=== PATIENT | female | born 1980 | race Caucasian/White ===

== ENCOUNTER 2017-01-21 00:59 | Emergency (ER) | payer SELFPAY ==
[~2017-01-21] VITALS: Ht 165.1 cm; Wt 152.0 kg
--- NOTE | 2017-01-21 01:16 | ED Chest Pain ---
General Chief Complaint: Chest Pain Stated Complaint: CP Nursing Triage Note: c/o intermittent chest pain worse with deep breathing x 1 week Nursing Sepsis Screen: No Definite Risk Source: patient, RN notes reviewed Exam Limitations: no limitations History of Present Illness Time seen by provider: 01:11 Initial Comments Patient presents c/ c/o a week of substernal chest pain that is getting progressively worse. Increases significantly c/ inspiration. No known fever. No cough. No injury. No previous similar episodes. Denies any N/V, or diaphoresis as well as any SOA. Timing/Duration: 1 week, getting worse, intermittent Severity/Quality: moderate (5/10), sharp Location: substernal Radiation: no radiation Activities at Onset: other (unknown) Prior CP/Workup: no prior chest pain, no prior cardiac workup Modifying Factors: worse with breathing ASA po ASSISTANT PROFESSOR OF FORESTRY: No NTG SL ASSISTANT PROFESSOR OF FORESTRY: No Associated Symptoms: No diaphoresis, No fever/chills, No nausea/vomiting, No shortness of breath Allergies and Home Medications Allergies Coded Allergies: No Known Drug Allergies (Unverified , 01/21/17) Home Medications Diclofenac Sodium 50 Mg Tablet.dr, 50 MG PO Q6H PRN for chest pain, #30 Ref 0 Prescribed by: WYATT HARTMAN on 01/21/17 0233 Review of Systems Constitutional: see HPI Cardiovascular: See HPI, Chest Pain All Other Systems Reviewed Negative Unless Noted: Yes (Negative excepted noted.) Past Mytfaez-Yjjcql-Zwxogj Hx Patient Social History Alcohol Use: Denies Use Recreational Drug Use: No Smoking Status: Current Everyday Smoker Type Used: Cigarettes Recent Foreign Travel: No Contact w/Someone Who Travel: No Recent Infectious Disease Expo: No Surgeries Surgeries: Abdominal, Section Physical Exam Vital Signs Vital Sign - Last 12Hours 01/21/17 01/21/17 01:08 02:54 Temp 98.2 Pulse 95 Resp 18 B/P (MAP) 144/89 Pulse Ox 98 O2 Delivery Room Air Capillary Refill : Less Than 3 Seconds General Appearance: No Apparent Distress, WD/WN, Obese HEENT: Normal ENT Inspection Neck: Normal Inspection Respiratory: No Respiratory Distress, Other ((+) ACW tenderness/pain c/ palpation that does reproduce her pain) Cardiovascular: Regular Rate, Rhythm Gastrointestinal: Soft, Other (obese) Rectal: Deferred Neurologic/Psychiatric: Alert, Oriented x3, No Motor/Sensory Deficits Skin: Warm/Dry, No Rash Progress/Results/Core Measures Results/Orders Lab Results Laboratory Tests Test 01/21/17 01:40 01/21/17 02:00 Range/Units White Blood Count 9.2 4.3-11.0 10^3/uL Red Blood Count 4.52 4.35-5.85 10^6/uL Hemoglobin 11.6 11.5-16.0 G/DL Hematocrit 37 35-52 % Mean Corpuscular Volume 81 80-99 FL Mean Corpuscular Hemoglobin 26 25-34 PG Mean Corpuscular Hemoglobin Concent 32 32-36 G/DL Red Cell Distribution Width 15.1 H 10.0-14.5 % Platelet Count 296 130-400 10^3/uL Mean Platelet Volume 9.9 7.4-10.4 FL Neutrophils (%) (Auto) 71 42-75 % Lymphocytes (%) (Auto) 23 12-44 % Monocytes (%) (Auto) 5 0-12 % Eosinophils (%) (Auto) 1 0-10 % Basophils (%) (Auto) 0 0-10 % Neutrophils # (Auto) 6.5 1.8-7.8 X 10^3 Lymphocytes # (Auto) 2.1 1.0-4.0 X 10^3 Monocytes # (Auto) 0.5 0.0-1.0 X 10^3 Eosinophils # (Auto) 0.1 0.0-0.3 10^3/uL Basophils # (Auto) 0.0 0.0-0.1 10^3/uL D-Dimer 0.35 0.00-0.49 UG/ML Sodium Level 140 135-145 MMOL/L Potassium Level 3.9 3.6-5.0 MMOL/L Chloride Level 107 98-107 MMOL/L Carbon Dioxide Level 22 21-32 MMOL/L Anion Gap 11 5-14 MMOL/L Blood Urea Nitrogen 11 7-18 MG/DL Creatinine 0.77 0.60-1.30 MG/DL Estimat Glomerular Filtration Rate > 60 BUN/Creatinine Ratio 14 0-20 Glucose Level 103 70-105 MG/DL Calcium Level 9.8 8.5-10.1 MG/DL Magnesium Level 2.4 1.8-2.4 MG/DL Total Bilirubin 0.2 0.1-1.0 MG/DL Aspartate Amino Transf (AST/SGOT) 13 5-34 U/L Alanine Aminotransferase (ALT/SGPT) 10 0-55 U/L Alkaline Phosphatase 55 40-136 U/L Troponin I < 0.30 <0.30 NG/ML B-Type Natriuretic Peptide < 10.0 <100.0 PG/ML Total Protein 7.4 6.4-8.2 GM/DL Albumin 3.7 3.2-4.5 GM/DL Lipase 46 8-78 U/L Urine Color YELLOW Urine Clarity CLEAR Urine pH 6 5-9 Urine Specific [place] 1.015 L 1.016-1.022 Urine Protein NEGATIVE NEGATIVE Urine Glucose (UA) NEGATIVE NEGATIVE Urine Ketones NEGATIVE NEGATIVE Urine Nitrite NEGATIVE NEGATIVE Urine Bilirubin NEGATIVE NEGATIVE Urine Urobilinogen NORMAL NORMAL MG/DL Urine Leukocyte Esterase 2+ H NEGATIVE Urine RBC (Auto) NEGATIVE NEGATIVE Urine RBC NONE /HPF Urine WBC 2-5 /HPF Urine Squamous Epithelial Cells 10-25 H /HPF Urine Crystals NONE /LPF Urine Bacteria FEW H /HPF Urine Casts NONE /LPF Urine Mucus NEGATIVE /LPF Urine Culture Indicated NO My Orders Orders - WYATT HARTMAN DO Saline Lock/Iv-Start (01/21/17 01:14) Ekg Tracing (01/21/17 01:14) BNP (01/21/17 01:14) Cbc With Automated Diff (01/21/17 01:14) Comprehensive Metabolic Panel (01/21/17 01:14) Lipase (01/21/17 01:14) Magnesium (01/21/17 01:14) Troponin I (01/21/17 01:14) Ua Culture If Indicated (01/21/17 01:14) Chest 1 View, Ap/Pa Only (01/21/17 01:14) Fibrin Degradation Products (01/21/17 01:17) Ketorolac Injection (Toradol Injection) (01/21/17 01:30) Dexamethasone Pf Injection (Decadron Pf (01/21/17 02:30) Tramadol Tablet (Ultram Tablet) (01/21/17 02:30) Medications Given in ED Current Medications Medications Dose Ordered Sig/Mayito Route Start Time Stop Time Status Last Admin Dose Admin Dexamethasone Sodium Phosphate 10 mg ONCE ONCE IM 01/21/17 02:30 01/21/17 02:32 DC 01/21/17 02:52 10 MG Ketorolac Tromethamine 30 mg ONCE ONCE IVP 01/21/17 01:30 01/21/17 01:31 DC 01/21/17 01:33 30 MG Tramadol HCl 100 mg ONCE ONCE PO 01/21/17 02:30 01/21/17 02:32 DC 01/21/17 02:52 100 MG Vital Signs/I&O Vital Sign - Last 12Hours 01/21/17 01/21/17 01/21/17 01:08 01:08 02:54 Temp 98.2 Pulse 95 96 Resp 18 12 B/P (MAP) 144/89 Pulse Ox 98 O2 Delivery Room Air Room Air Blood Pressure Mean: 107 Progress Note : Progress Note Pain is better p/ the toradol, although the patient said it made her a little loopy. ECG Initial ECG Impression Date: Jan 21, 2017 Initial ECG Impression Time: 01:12 Initial ECG Rate: 96 Initial ECG Rhythm: Normal Sinus Initial ECG Comparisson: No Previous ECG Available Comment borderline prolonged QT interval Diagnostic Imaging Diagonstic Imaging: Xray Plain Films/CT/US/NM/MRI: chest Reviewed: Reviewed by Me (nothing acute) Departure Impression Impression: Primary Impression: Costochondritis, acute Additional Impression: Tobacco abuse Disposition: HOME, SELF-CARE Condition: Stable Departure-Patient Inst. Decision time for Depature: 02:32 Referrals: DIANNA ALEJO MD Patient Instructions: Costochondritis (DC) Scripts Diclofenac Sodium (Diclofenac Sodium) 50 Mg Tablet. 50 MG PO Q6H Y for chest pain, #30 TAB 0 Refills Prov: WYATT HARTMAN DO 01/21/17 WYATT HARTMAN DO Jan 21, 2017 01:16
[2017-01-21] MEDS ORDERED: KETOROLAC 30 MG/ML VIAL IVP ONE (01:30)
[2017-01-21 01:51] LABS: BASOPHILS % (AUTO) 0 % (0-10); EOSINOPHILS # (AUTO) 0.1 10^3/uL (0.0-0.3); EOSINOPHILS % (AUTO) 1 % (0-10); LYMPHOCYTES # (AUTO) 2.1 X 10^3 (1.0-4.0); LYMPHOCYTES % (AUTO) 23 % (12-44); MEAN CORPUSCULAR HEMOGLOBIN 26 PG (25-34); MEAN CORPUSCULAR HGB CONC 32 G/DL (32-36); MEAN CORPUSCULAR VOLUME 81 FL (80-99); MEAN PLATELET VOLUME 9.9 FL (7.4-10.4); MONOCYTES # (AUTO) 0.5 X 10^3 (0.0-1.0); MONOCYTES % (AUTO) 5 % (0-12); NEUTROPHILS # (AUTO) 6.5 X 10^3 (1.8-7.8); NEUTROPHILS % (AUTO) 71 % (42-75); PLATELET COUNT 296 10^3/uL (130-400); RED BLOOD COUNT 4.52 10^6/uL (4.35-5.85); RED CELL DISTRIBUTION WIDTH 15.1 % (10.0-14.5); WHITE BLOOD COUNT 9.2 10^3/uL (4.3-11.0)
[2017-01-21 02:08] LABS: BILIRUBIN,URINE NEGATIVE (NEGATIVE); KETONES,URINE NEGATIVE (NEGATIVE); LEUKOCYTE ESTERASE ,URINE 2+ (NEGATIVE); NITRITE,URINE NEGATIVE (NEGATIVE); PH,URINE 6 (5-9); PROTEIN,URINE NEGATIVE (NEGATIVE); UROBILINOGEN,URINE NORMAL (NORMAL)
[2017-01-21 02:14] LABS: ALANINE AMINOTRANSFERASE 10 U/L (0-55); ALBUMIN 3.7 GM/DL (3.2-4.5); ANION GAP 11 MMOL/L (5-14); ASPARTATE AMINO TRANSFERASE 13 U/L (5-34); BILIRUBIN,TOTAL 0.2 MG/DL (0.1-1.0); BLOOD UREA NITROGEN 11 MG/DL (7-18); BUN/CREATININE RATIO 14 (0-20); CALCIUM 9.8 MG/DL (8.5-10.1); CARBON DIOXIDE 22 MMOL/L (21-32); CHLORIDE 107 MMOL/L (98-107); CREATININE SERUM 0.77 MG/DL (0.60-1.30); GFR ESTIMATED > 60; GLUCOSE 103 MG/DL (70-105); HEMOLYSIS 5 (0-29); ICTERUS 0.1 (0-1.9); LIPASE 46 U/L (8-78); LIPEMIA 16 (0-49); MAGNESIUM 2.4 MG/DL (1.8-2.4); POTASSIUM 3.9 MMOL/L (3.6-5.0); SODIUM 140 MMOL/L (135-145); TOTAL PROTEIN 7.4 GM/DL (6.4-8.2)
[2017-01-21 02:20] LABS: TROPONIN I < 0.30 NG/ML (<0.30)
[2017-01-21] MEDS ORDERED: DEXAMETHASONE PF 10 MG/ML (DECADRON) VIAL IM ONE (02:30)
[2017-01-21] MEDS ORDERED: DICL50TA6 PO (02:33)
[2017-01-21 02:54] VITALS: BP 120/77
--- NOTE | 2017-01-21 07:20 | Diagnostic Imaging Report ---
INDICATION: Chest pain. TECHNIQUE: Single view chest 1:30 AM. CORRELATION STUDY: None FINDINGS: The heart size, mediastinal configuration and pulmonary vascularity are within normal limits. The lungs are clear with no consolidating infiltrate. May be trace atelectasis left lung base. There is no significant effusion or pneumothorax. IMPRESSION: 1. No radiographic evidence for acute abnormality of the chest. Dictated by: Dictated on workstation # [id number]
== END 2017-01-21 02:53 | disposition home or self-care (01) ==
LOC: ER 01:06
DX: M94.0 Chondrocostal junction syndrome [Tietze] (principal); F17.210 Nicotine dependence, cigarettes, uncomplicated
CPT/HCPCS: 36415; 71010; 80053; 81000; 83690; 83735; 83880; 84484; 85025; 85379; 93005; 99285

== ENCOUNTER 2017-08-18 17:08 | Emergency (ER) | payer OTHER ==
[~2017-08-18] VITALS: Ht 165.1 cm; Wt 142.4 kg
[~2017-08-18 17:08] MED LIST: DICL50TA6 PO
[2017-08-18] MEDS ORDERED: ASPIRIN 81 MG CHEW (CHILDREN'S ASA) PO ONE (17:15)
[2017-08-18] MEDS ORDERED: TRAZDONE (17:41)
[2017-08-18] MEDS ORDERED: METOPROLOL (17:44)
--- NOTE | 2017-08-18 17:44 | Diagnostic Imaging Report ---
INDICATION: Chest pain starting today. TECHNIQUE: Single view chest 5:26 PM. CORRELATION STUDY: 01/21/2017 FINDINGS: Heart size enlarged. Vasculature overall within normal limits. Atelectasis or infiltrate is present about the left lung base. IMPRESSION: 1. Cardiac enlargement without evidence of overt failure. Minimal atelectasis or less likely infiltrate left lung base. Dictated by: Dictated on workstation # [id number]
[2017-08-18 17:45] LABS: BASOPHILS % (AUTO) 0 % (0-10); EOSINOPHILS # (AUTO) 0.1 10^3/uL (0.0-0.3); EOSINOPHILS % (AUTO) 1 % (0-10); HEMATOCRIT 37 % (35-52); HEMOGLOBIN 12.1 G/DL (11.5-16.0); LYMPHOCYTES % (AUTO) 21 % (12-44); MEAN CORPUSCULAR HEMOGLOBIN 26 PG (25-34); MEAN CORPUSCULAR HGB CONC 33 G/DL (32-36); MEAN CORPUSCULAR VOLUME 79 FL (80-99); MEAN PLATELET VOLUME 10.2 FL (7.4-10.4); MONOCYTES # (AUTO) 0.7 X 10^3 (0.0-1.0); MONOCYTES % (AUTO) 7 % (0-12); NEUTROPHILS # (AUTO) 6.7 X 10^3 (1.8-7.8); NEUTROPHILS % (AUTO) 71 % (42-75); PLATELET COUNT 279 10^3/uL (130-400); RED CELL DISTRIBUTION WIDTH 14.9 % (10.0-14.5); WHITE BLOOD COUNT 9.5 10^3/uL (4.3-11.0)
[2017-08-18 17:58] LABS: INR 1.1 (0.8-1.4); PROTHROMBIN TIME PATIENT 13.8 SEC (12.2-14.7)
[2017-08-18 18:08] LABS: ALANINE AMINOTRANSFERASE 14 U/L (0-55); ALBUMIN 3.6 GM/DL (3.2-4.5); ALKALINE PHOSPHATASE 48 U/L (40-136); BILIRUBIN,TOTAL 0.2 MG/DL (0.1-1.0); BUN/CREATININE RATIO 16; CALCIUM 8.7 MG/DL (8.5-10.1); CARBON DIOXIDE 22 MMOL/L (21-32); CHLORIDE 105 MMOL/L (98-107); CREATININE SERUM 0.76 MG/DL (0.60-1.30); GFR ESTIMATED > 60; GLUCOSE 139 MG/DL (70-105); MAGNESIUM 1.8 MG/DL (1.8-2.4); POTASSIUM 4.1 MMOL/L (3.6-5.0); SODIUM 137 MMOL/L (135-145); TOTAL PROTEIN 6.6 GM/DL (6.4-8.2)
[2017-08-18 18:16] LABS: MYOGLOBIN SERUM 17.5 NG/ML (10.0-92.0)
--- NOTE | 2017-08-18 18:21 | ED Cardiac General ---
History of Present Illness General Chief Complaint: Chest Pain Stated Complaint: CHEST PAIN Nursing Triage Note: AMB TO ROOM FROM [facility] WAS SEEN AT [facility] MED REFILL HAS NOT HAD MEDS FOR 2MONTHS. WAS TOLD BY NURSE SHE NEEDED TO COME ED FOR IRREGULAR HR. Source: patient, old records (from [facility]) Exam Limitations: no limitations History of Present Illness Time seen by provider: 17:30 Initial Comments This 36-year-old woman presents to the emergency room with chest discomfort and tachycardia. She has a history of paroxysmal SVT and has been on metoprolol. However, she has been without her medications for a couple of months. She went to [facility] today for a checkup and a refill on medications. Apparently she was given metoprolol and Trileptal from the repository and also prescribed trazodone. Her thyroid labs were drawn as well as she has hypothyroidism and has not been taking her levothyroxine. I did contact [facility] and obtained a copy of her EKG that was done at that time. She had apparent SVT with a heart rate of 146 and multiple PVCs. Patient is now in sinus tachycardia with a heart rate around 105. She reports having pain in her left central chest that worsens with deep inspiration and shoots down her left arm with inspiration. She is also had some aching in her back and shoulders and tingling in the hands bilaterally. She reports an extensive workup and prolonged hospital stay at [facility] last January during which a stress test was performed which she reports was negative. Patient was concerned today because her palpitations did not resolve with Valsalva as they usually do. Patient was previously seeing Dr. Bray in [place] but has moved to the [place] area and would like to establish with local providers. NTG SL MINISTER HELPER: No ASA po MINISTER HELPER: No Allergies and Home Medications Allergies Coded Allergies: No Known Drug Allergies (Unverified , 01/21/17) Home Medications Cephalexin 500 Mg Capsule, 500 MG PO QID, #28 Prescribed by: SANDIE PRATER on 08/18/173 Diclofenac Sodium 50 Mg Tablet., 50 MG PO Q6H PRN for chest pain, #30 Ref 0 Prescribed by: WYATT HARTMAN on 01/21/17 0233 [Metoprolol] , (Reported) [Trazdone] , (Reported) Review of Systems Constitutional: no symptoms reported EENTM: No Symptoms Reported Respiratory: See HPI Cardiovascular: See HPI Gastrointestinal: No Symptoms Reported Genitourinary: No Symptoms Reported Musculoskeletal: no symptoms reported Skin: no symptoms reported Psychiatric/Neurological: No Symptoms Reported Endocrine: No Symptoms Reported Hematologic/Lymphatic: No Symptoms Reported Past Iymqtyu-Blggvs-Bjlkrk Hx Patient Social History Alcohol Use: Denies Use Recreational Drug Use: No Smoking Status: Former Smoker Type Used: Cigarettes Recent Foreign Travel: No Contact w/Someone Who Travel: No Recent Infectious Disease Expo: No Surgeries History of Surgeries: Yes Surgeries: Abdominal, Section Respiratory History of Respiratory Disorde: No Cardiovascular History of Cardiac Disorders: Yes (PSVT) Neurological History of Neurological Disord: No Reproductive System : No Genitourinary History of Genitourinary Disor: No Gastrointestinal History of Gastrointestinal Di: No Musculoskeletal History of Musculoskeletal Dis: Yes Musculoskeletal Disorders: Arthritis Endocrine History of Endocrine Disorders: Yes Endocrine Disorders: Hypothyroidsim HEENT History of HEENT Disorders: No Cancer History of Cancer: No Psychosocial History of Psychiatric Problem: Yes Behavioral Health Disorders: Anxiety, Bipolar Integumentary History of Skin or Integumenta: No Blood Transfusions History of Blood Disorders: No Physical Exam Vital Signs Vital Sign - Last 12Hours 08/18/17 17:08 Temp 98.0 Pulse 90 Resp 18 B/P (MAP) 138/76 (96) Pulse Ox 100 O2 Delivery Room Air Capillary Refill : Less Than 3 Seconds General Appearance: No Apparent Distress HEENT: PERRL/EOMI, Normal ENT Inspection Neck: Normal Inspection Respiratory: Lungs Clear, Normal Breath Sounds, No Accessory Muscle Use, No Respiratory Distress, Other (chest minimally tender to palpation anteriorly) Cardiovascular: No Edema, No Murmur, Tachycardia (regular) Gastrointestinal: Normal Bowel Sounds, Non Tender, Soft Extremity: Normal Inspection, No Pedal Edema, Calf Tenderness (equal bilaterally), Other (positive Don bilaterally) Neurologic/Psychiatric: Alert, Oriented x3, No Motor/Sensory Deficits, Normal Mood/Affect, grain inspector II-XII Norm as Tested Skin: Normal Color, Warm/Dry Progress/Results/Core Measures Results/Orders Lab Results Laboratory Tests Test 08/18/17 17:36 08/18/17 18:26 Range/Units White Blood Count 9.5 4.3-11.0 10^3/uL Red Blood Count 4.60 4.35-5.85 10^6/uL Hemoglobin 12.1 11.5-16.0 G/DL Hematocrit 37 35-52 % Mean Corpuscular Volume 79 L 80-99 FL Mean Corpuscular Hemoglobin 26 25-34 PG Mean Corpuscular Hemoglobin Concent 33 32-36 G/DL Red Cell Distribution Width 14.9 H 10.0-14.5 % Platelet Count 279 130-400 10^3/uL Mean Platelet Volume 10.2 7.4-10.4 FL Neutrophils (%) (Auto) 71 42-75 % Lymphocytes (%) (Auto) 21 12-44 % Monocytes (%) (Auto) 7 0-12 % Eosinophils (%) (Auto) 1 0-10 % Basophils (%) (Auto) 0 0-10 % Neutrophils # (Auto) 6.7 1.8-7.8 X 10^3 Lymphocytes # (Auto) 2.0 1.0-4.0 X 10^3 Monocytes # (Auto) 0.7 0.0-1.0 X 10^3 Eosinophils # (Auto) 0.1 0.0-0.3 10^3/uL Basophils # (Auto) 0.0 0.0-0.1 10^3/uL Prothrombin Time 13.8 12.2-14.7 SEC INR Comment 1.1 0.8-1.4 Activated Partial Thromboplast Time 26 24-35 SEC D-Dimer < 0.27 0.00-0.49 UG/ML Sodium Level 137 135-145 MMOL/L Potassium Level 4.1 3.6-5.0 MMOL/L Chloride Level 105 98-107 MMOL/L Carbon Dioxide Level 22 21-32 MMOL/L Anion Gap 10 5-14 MMOL/L Blood Urea Nitrogen 12 7-18 MG/DL Creatinine 0.76 0.60-1.30 MG/DL Estimat Glomerular Filtration Rate > 60 BUN/Creatinine Ratio 16 Glucose Level 139 H 70-105 MG/DL Calcium Level 8.7 8.5-10.1 MG/DL Magnesium Level 1.8 1.8-2.4 MG/DL Total Bilirubin 0.2 0.1-1.0 MG/DL Aspartate Amino Transf (AST/SGOT) 9 5-34 U/L Alanine Aminotransferase (ALT/SGPT) 14 0-55 U/L Alkaline Phosphatase 48 40-136 U/L Myoglobin 17.5 10.0-92.0 NG/ML Troponin I < 0.30 <0.30 NG/ML C-Reactive Protein High Sensitivity 0.61 H 0.00-0.50 MG/DL Total Protein 6.6 6.4-8.2 GM/DL Albumin 3.6 3.2-4.5 GM/DL Thyroid Stimulating Hormone (TSH) 2.28 0.35-4.94 UIU/ML Free Thyroxine 0.91 0.70-1.48 NG/DL Serum Test, Qualitative NEGATIVE NEGATIVE Urine Color YELLOW Urine Clarity SLIGHTLY CLOUDY Urine pH 7 5-9 Urine Specific [place] 1.015 L 1.016-1.022 Urine Protein 1+ H NEGATIVE Urine Glucose (UA) NEGATIVE NEGATIVE Urine Ketones NEGATIVE NEGATIVE Urine Nitrite NEGATIVE NEGATIVE Urine Bilirubin NEGATIVE NEGATIVE Urine Urobilinogen 1 NORMAL MG/DL Urine Leukocyte Esterase 3+ H NEGATIVE Urine RBC (Auto) NEGATIVE NEGATIVE Urine RBC NONE /HPF Urine WBC 25-50 H /HPF Urine Squamous Epithelial Cells 5-10 /HPF Urine Crystals NONE /LPF Urine Bacteria FEW H /HPF Urine Casts NONE /LPF Urine Mucus NEGATIVE /LPF Urine Culture Indicated YES My Orders Orders - SANDIE LUGO MD Hcg,Qualitative Serum (08/18/17 17:39) Thyroid Stimulating Hormone (08/18/17 17:45) Free T4 (Free Thyroxine) (08/18/17 17:45) Hs C Reactive Protein (08/18/17 17:49) Fibrin Degradation Products (08/18/17 17:49) Medications Given in ED Current Medications Medications Dose Ordered Sig/Mayito Route Start Time Stop Time Status Last Admin Dose Admin Aspirin 324 mg ONCE ONCE PO 08/18/17 17:15 08/18/17 17:16 DC 08/18/17 17:54 324 MG Vital Signs/I&O Vital Sign - Last 12Hours 08/18/17 08/18/17 17:08 18:42 Temp 98.0 Pulse 90 96 Resp 18 18 B/P (MAP) 138/76 (96) 155/85 (108) Pulse Ox 100 98 O2 Delivery Room Air Room Air Blood Pressure Mean: 96 Progress Note #1: Time: 18:20 Progress Note Patient was seen and evaluated. Chest pain protocol was followed. Workup is to include a d-dimer and a thyroid labs. Patient seems to maintain sinus tachycardia at this time. She reports some persistent mild chest discomfort. Aspirin was given as part of the chest pain protocol. I did discuss the case with nursing staff at [facility] and reviewed her EKG. Progress Note #2: Time: 19:10 Progress Note Case was reviewed with Dr. Sheehan. He agrees patient is stable for discharge home but he would like to see her as soon as possible in the clinic. She may need to be evaluated for ablation in the future. Patient was found to have persistent UTI. Keflex will be prescribed. Patient remained stable and mild sinus tachycardia. I did have her take her first dose of metoprolol that she filled at [facility] today. Thyroid studies were normal. ECG Initial ECG Impression Date: Aug 18, 2017 Initial ECG Impression Time: 17:18 Initial ECG Rate: 106 Initial ECG Rhythm: S.Tach Comment Sinus tachycardia with no ST elevation or depression. Multiple PVCs, possible ventricular trigeminy. Diagnostic Imaging Diagonstic Imaging: Xray Plain Films/CT/US/NM/MRI: chest Comments Chest x-ray viewed by me and report reviewed. See report below: NAME: HODA COOK REC#: [id number] PT STATUS: REG ER : 1980 PHYSICIAN: ROOPA ASTUDILLO ADMIT DATE: 08/18/17/ER Draft Date of Exam:08/18/17 CHEST 1 VIEW, AP/PA ONLY INDICATION: Chest pain starting today. TECHNIQUE: Single view chest 5:26 PM. CORRELATION STUDY: 01/21/2017 FINDINGS: Heart size enlarged. Vasculature overall within normal limits. Atelectasis or infiltrate is present about the left lung base. IMPRESSION: 1. Cardiac enlargement without evidence of overt failure. Minimal atelectasis or less likely infiltrate left lung base. Dictated on workstation # [id number] Dict: 08/18/17 1741 Trans: 08/18/17 1743 [id number] Interpreted by: DARRYL RANDHAWA DO Departure Impression Impression: Primary Impression: Paroxysmal SVT (supraventricular tachycardia) Additional Impressions: Atypical chest pain UTI (urinary tract infection) Qualified Codes: N39.0 - Urinary tract infection, site not specified Disposition: HOME, SELF-CARE Condition: Stable Departure-Patient Inst. Decision time for Depature: 19:09 Referrals: Jessica SHEEHAN MD NO,LOCAL PHYSICIAN (PCP) Primary Care Physician Patient Instructions: Supraventricular Tachycardia (SVT), Urinary Tract Infection, Adult (DC) Add. Discharge Instructions: For urinary tract infection please drink plenty of clear liquids and complete your antibiotic as prescribed. You need to review your urine culture results with your primary care provider or by calling the ER early next week. This will ensure you're taking an appropriate antibiotic for the type of infection you have. For SVT, please take your medications as prescribed, especially metoprolol. Please call Dr. Sheehan's office tomorrow to schedule an appointment. He would like to see you within the next 1-2 weeks. Return to the emergency room if symptoms worsen. You may take Tylenol ( acetaminophen) and/or ibuprofen for your chest pain. All discharge instructions reviewed with patient and/or family. Voiced understanding. Scripts Cephalexin (Keflex) 500 Mg Capsule 500 MG PO QID, #28 CAP Prov: SANDIE LUGO MD 08/18/17 Copy Copies To 1: KELLY MCPHERSON MD; Jessica SHEEHAN MD, JOSHUA T MD Aug 18, 2017 18:21
[2017-08-18 18:29] LABS: FREE T4 (FREE THYROXINE) 0.91 NG/DL (0.70-1.48)
[2017-08-18 18:35] LABS: BILIRUBIN,URINE NEGATIVE (NEGATIVE); CLARITY,URINE SLIGHTLY CLOUDY; COLOR,URINE YELLOW; GLUCOSE, URINE (UA) NEGATIVE (NEGATIVE); KETONES,URINE NEGATIVE (NEGATIVE); LEUKOCYTE ESTERASE ,URINE 3+ (NEGATIVE); NITRITE,URINE NEGATIVE (NEGATIVE); PH,URINE 7 (5-9); PROTEIN,URINE 1+ (NEGATIVE); UROBILINOGEN,URINE 1 MG/DL (NORMAL)
[2017-08-18 18:42] VITALS: BP 155/85
[2017-08-18 18:42] LABS: WBC,URINE 25-50 /HPF
[2017-08-18 18:43] LABS: BACTERIA,URINE FEW /HPF
[2017-08-18] MEDS ORDERED: CEPH-507 PO (19:13)
[2017-08-18 19:28] VITALS: BP 120/82
== END 2017-08-18 19:30 | disposition home or self-care (01) ==
LOC: EDUNIT# 17:08 → ER 17:10
DX: I47.1 Supraventricular tachycardia (principal); R07.89 Other chest pain; N39.0 Urinary tract infection, site not specified; F41.9 Anxiety disorder, unspecified; F31.9 Bipolar disorder, unspecified; E03.9 Hypothyroidism, unspecified; Z87.59 Personal history of other complications of pregnancy, childbirth and the puerperium; Z87.891 Personal history of nicotine dependence
CPT/HCPCS: 36415; 71045; 80053; 81000; 83735; 83874; 84439; 84443; 84484; 84703; 85025; 85379; 85610; 85730; 86141; 87088; 93005; 93041